=== PATIENT | female | born 1940 | race Two or more races ===

== ENCOUNTER 2019-11-02 13:45 | Emergency (ER) | payer OTHER ==
[~2019-11-02] VITALS: Ht 162.6 cm; Wt 70.8 kg
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
[2019-11-02] MEDS ORDERED: ACETAMINOPHEN ES 500 MG TABLET PO ONE (16:00)
[2019-11-02 16:20] LABS: BASOPHILS # (AUTO) 0.1 /CMM (0.0-0.2); BASOPHILS % (AUTO) 0.6 % (0.0-2.0); EOSINOPHILS % (AUTO) 0.4 % (0.0-6.0); HEMATOCRIT 46 % (33-45); HEMOGLOBIN 15.5 g/dL (11.5-14.8); LYMPHOCYTES # (AUTO) 1.5 /CMM (0.8-4.8); LYMPHOCYTES % (AUTO) 18.1 % (20.0-44.0); MEAN CORPUSCULAR HGB CONC 34 g/dl (31.0-36.0); MEAN CORPUSCULAR VOLUME 89 fL (82-100); MONOCYTES # (AUTO) 0.5 /CMM (0.1-1.30); MONOCYTES % (AUTO) 6.4 % (2.0-12.0); NEUTROPHILS # (AUTO) 6.3 /CMM (1.8-8.9); NEUTROPHILS % (AUTO) 74.5 % (43.0-81.0); PLATELET COUNT (AUTO) 230 /CMM (150-450); RED BLOOD CELL COUNT(AUTO) 5.14 MIL/uL (4.0-5.2); WHITE BLOOD COUNT (AUTO) 8.5 K/uL (4.3-11.0)
--- NOTE | 2019-11-02 16:20 | NUR ---
PT AAOX4, SPEAKING IN FULL SENTENCES. DENIES CP, SOB, DIZZINESS, N/V, VISUAL CHANGES, WEAKNESS/NUMBNESS AT THIS TIME. PT TO CT VIA JAMEE.
[2019-11-02 16:29] LABS: CALCIUM, SERUM 9.4 mg/dL (8.5-10.1); CREATININE 0.7 mg/dL (0.6-1.3); POTASSIUM 3.8 mmol/L (3.5-5.1)
[2019-11-02] MEDS ORDERED: LEVETIRACETAM (500MG) 500 MG in IV NS 0.9% 100 ML IV ONE (16:30)
[2019-11-02 16:35] LABS: BILIRUBIN,DIRECT 0.1 mg/dL (0.0-0.2); BILIRUBIN,TOTAL 0.5 mg/dL (0.2-1.0); TOTAL PROTEIN, SERUM 7.7 g/dL (6.4-8.2)
--- NOTE | 2019-11-02 16:43 | NUR ---
PT BACK FROM CT. PLACED ON SZ PRECAUTION. PLACED ON E MARKETING SPECIALIST, NSR. WILL CONT TO MONITOR.
[2019-11-02] MEDS ORDERED: ACETAMINOPHEN ES 500 MG TABLET ONE (16:49)
--- NOTE | 2019-11-02 17:27 | NUR ---
CALLED [facility] FOR PEER TO PEER. [facility] DOCTOR WILL CALL BACK.
--- NOTE | 2019-11-02 18:24 | NUR ---
CALL FROM GIOVANY SILVESTRE, ACCEPTED BY DR BLAKE IN [facility],REPORT TO [phone],[place] ETA [phone]
[2019-11-02 18:25] VITALS: BP 119/78
--- NOTE | 2019-11-02 18:25 | NUR ---
PT SITTING UP WATCHING TV, NAD NOTED AT THIS TIME.
--- NOTE | 2019-11-02 19:10 | NUR ---
REPORT GIVEN TO KONRAD ROSEN AT [facility]. PT ENROUTE [facility]IA [facility].
== END 2019-11-02 19:12 | disposition short-term general hospital (02) ==
LOC: EDBD 13:47 → ER 13:47
DX: I60.9 Nontraumatic subarachnoid hemorrhage, unspecified (principal); S60.512A Abrasion of left hand, initial encounter; S60.511A Abrasion of right hand, initial encounter; R73.9 Hyperglycemia, unspecified; M25.522 Pain in left elbow; M25.521 Pain in right elbow; M25.512 Pain in left shoulder; M25.562 Pain in left knee; R51 Headache; R94.31 Abnormal electrocardiogram [ECG] [EKG]; Y04.8XXA Assault by other bodily force, initial encounter; Y93.89 Activity, other specified; Y92.481 Parking lot as the place of occurrence of the external cause; Y99.8 Other external cause status
CPT/HCPCS: 36415; 70450; 71250; 72125; 73030; 73060; 73070 ×2; 73120; 73564; 74176; 80048; 80076; 85025; 85730; 93005; 96365; 99291; J1953; J7030

== ENCOUNTER 2020-10-19 20:45 | Emergency (ER) | payer OTHER ==
[~2020-10-19] VITALS: Ht 152.4 cm; Wt 54.4 kg
[2020-10-19 21:17] LABS: BASOPHILS % (AUTO) 0.6 % (0.0-2.0); EOSINOPHILS % (AUTO) 0.9 % (0.0-6.0); HEMATOCRIT 42 % (33-45); HEMOGLOBIN 13.7 g/dL (11.5-14.8); LYMPHOCYTES % (AUTO) 39.4 % (20.0-44.0); MEAN CORPUSCULAR HGB CONC 33 g/dl (31.0-36.0); MEAN CORPUSCULAR VOLUME 94 fL (82-100); MONOCYTES # (AUTO) 0.4 K/uL (0.1-1.30); MONOCYTES % (AUTO) 8.4 % (2.0-12.0); NEUTROPHILS # (AUTO) 2.5 K/uL (1.8-8.9); NEUTROPHILS % (AUTO) 50.7 % (43.0-81.0); PLATELET COUNT (AUTO) 236 K/uL (150-450); RED BLOOD CELL COUNT(AUTO) 4.41 MIL/uL (4.0-5.2)
[2020-10-19 21:26] LABS: CALCIUM, SERUM 9.5 mg/dL (8.5-10.1); CREATININE 0.6 mg/dL (0.6-1.3); POTASSIUM 3.8 mmol/L (3.5-5.1)
[2020-10-19] MEDS ORDERED: KETOROLAC TROMETHAMINE INJ 30 MG/ML VIAL IV ONE (21:30)
[2020-10-19] MEDS ORDERED: KETOROLAC TROMETHAMINE 15 MG/ML VIAL ONE (21:53)
[2020-10-19] MEDS ORDERED: LIDOCAINE 1% INJ 50 ML MDV IJ ONE (22:16)
[2020-10-20] MEDS ORDERED: NEOM28.37 TP (00:10)
[2020-10-20] MEDS ORDERED: HYDR-4209 PO (00:10)
--- NOTE | 2020-10-20 00:21 | NUR ---
IV removed. Catheter intact and site benign. Pressure and 4x4 applied to site. No bleeding noted.
--- NOTE | 2020-10-20 00:21 | NUR ---
Patient discharged to home in stable condition. Written and verbal after care instructions given. Patient verbalizes understanding of instruction.
[2020-10-20 00:22] VITALS: BP 123/85
--- NOTE | 2020-10-20 00:23 | NUR ---
patient is picked up by friend Maria T.
== END 2020-10-20 00:23 | disposition home or self-care (01) ==
LOC: ER 20:47
DX: S61.212A Laceration without foreign body of right middle finger without damage to nail, initial encounter (principal); S60.410A Abrasion of right index finger, initial encounter; S60.311A Abrasion of right thumb, initial encounter; S09.90XA Unspecified injury of head, initial encounter; M54.6 Pain in thoracic spine; W20.8XXA Other cause of strike by thrown, projected or falling object, initial encounter; Y93.89 Activity, other specified; Y92.89 Other specified places as the place of occurrence of the external cause; Y99.8 Other external cause status
CPT/HCPCS: 12001; 36415; 70450; 71045; 72125; 72128; 72131; 73130; 80048; 82550; 85025; 85730; 96374; 99285; A6403 ×2; J1885; J3490

== ENCOUNTER 2022-10-02 03:21 | Emergency (ER) | payer OTHER ==
[~2022-10-02] VITALS: Ht 152.4 cm; Wt 60.1 kg
[~2022-10-02 03:21] MED LIST: HYDR-4209 PO; NEOM28.37 TP
[2022-10-02 03:35] VITALS: TEMP 98.4
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
--- NOTE | 2022-10-02 03:48 | NUR ---
CASTINGS DRAFTER AT BEDSIDE
[2022-10-02] MEDS ORDERED: PROPOFOL 20 ML IV ONE (04:42)
[2022-10-02] MEDS ORDERED: FENTANYL PF 100MCG/2ML AMPUL ONE (04:43)
--- NOTE | 2022-10-02 04:45 | NUR ---
MATILDE/KAMARI AT BEDSIDE, SIGNED CONSENT. CONTACT #[phone]
[2022-10-02] MEDS: FENTANYL PF 100MCG/2ML AMPUL IV ONE (04:47)
--- NOTE | 2022-10-02 04:50 | NUR ---
MD, RN, RT, EMT AT BEDSIDE FOR CLOSED REDUCTION OF RIGHT SHOULDER. VSS HR 73-RR 18-BP 140/117-O2SAT 100% ON 2L PRIOR TO REDUCTION. FENTANYL 50MCG IVP GIVEN. VSS POST REDUCTION HR 70-RR 17-BP 145/49-O2SAT 100% ON 2L.
[2022-10-02] MEDS: PROPOFOL 200 MG/20 ML VIAL IV ONE (04:57)
--- NOTE | 2022-10-02 05:01 | NUR ---
CALLED [facility] AND NOTIFIED ABOUT PT. AWAITING A CALL BACK.
[2022-10-02 05:02] LABS: BASOPHILS % (AUTO) 0.5 % (0.0-2.0); EOSINOPHILS % (AUTO) 2.1 % (0.0-6.0); HEMATOCRIT 34 % (33-45); HEMOGLOBIN 11.1 g/dL (11.5-14.8); LYMPHOCYTES # (AUTO) 1.9 K/uL (0.8-4.8); LYMPHOCYTES % (AUTO) 27.4 % (20.0-44.0); MEAN CORPUSCULAR HGB CONC 32 g/dl (31.0-36.0); MEAN CORPUSCULAR VOLUME 91 fL (82-100); MONOCYTES # (AUTO) 0.6 K/uL (0.1-1.30); NEUTROPHILS # (AUTO) 4.2 K/uL (1.8-8.9); PLATELET COUNT (AUTO) 198 K/uL (150-450); RED BLOOD CELL COUNT(AUTO) 3.76 MIL/uL (4.0-5.2); WHITE BLOOD COUNT (AUTO) 6.8 K/uL (4.3-11.0)
[2022-10-02 05:09] LABS: CALCIUM, SERUM 9.5 mg/dL (8.5-10.1); CARBON DIOXIDE 28 mmol/L (21-32); CHLORIDE 106 mmol/L (98-107); CREATININE 0.5 mg/dL (0.6-1.3); GLUCOSE 157 mg/dL (74-106); POTASSIUM 4.1 mmol/L (3.5-5.1); SODIUM SERUM 139 mmol/L (136-145); UREA NITROGEN, BLOOD 25 mg/dL (7-18)
[2022-10-02] MEDS ORDERED: HALOPERIDOL LACTATE INJ 5 MG/ML VIAL ONE (05:33)
[2022-10-02] MEDS: HALOPERIDOL LACTATE INJ 5 MG/ML VIAL IM ONE (05:39)
--- NOTE | 2022-10-02 05:56 | NUR ---
PT GOING TO ER AT [facility] [phone] ACCEPTING MD SPEARS. [facility] ETA IS 0730.
[2022-10-02 06:00] VITALS: BP 152/68
[2022-10-02] MEDS ORDERED: LORAZEPAM INJ 2 MG/ML VIAL ONE (06:36)
[2022-10-02] MEDS: LORAZEPAM INJ 2 MG/ML VIAL IV ONE (06:41)
--- NOTE | 2022-10-02 06:42 | NUR ---
REPORT GIVEN TO OSORIO SILVESTRE AT [facility]
--- NOTE | 2022-10-02 07:57 | NUR ---
patient taken to ct via [facility]
== END 2022-10-02 08:34 | disposition short-term general hospital (02) ==
LOC: ER 03:28
DX: S42.391A Other fracture of shaft of right humerus, initial encounter for closed fracture (principal); R51.9 Headache, unspecified; Z20.822 Contact with and (suspected) exposure to COVID-19; W18.39XA Other fall on same level, initial encounter; Y93.89 Activity, other specified; Y92.89 Other specified places as the place of occurrence of the external cause; Y99.8 Other external cause status
CPT/HCPCS: 24505; 99285; 73060 ×2; 72125; 70450 ×2; 85025; 80048; 36415; 85730; 86850; 87426; 96372; 96374; 96375; J2060; J2704; J3010; J1630; C9803